=== PATIENT | male | born 2000 | race Hispanic/Latino ===

== ENCOUNTER 2022-06-13 16:59 | Emergency (ER) | payer OTHER ==
[~2022-06-13] VITALS: Ht 185.4 cm; Wt 99.8 kg
[2022-06-13] MEDS ORDERED: IBUPROFEN 600 MG TAB PO STA (18:03)
[2022-06-13] MEDS ORDERED: ACETAMINOPHEN 325 MG TAB ONE (18:14)
[2022-06-13] MEDS ORDERED: IBUPROFEN 600 MG TAB ONE (18:14)
[2022-06-13] MEDS ORDERED: ACETAMINOPHEN 325 MG TAB PO ONE (18:15)
[2022-06-13] MEDS ORDERED: TAMIFLU75 MG PO (18:24)
== END 2022-06-13 18:48 | disposition home or self-care (01) ==
LOC: FSED 17:17
DX: R05.9 Cough, unspecified (principal); J10.1 Influenza due to other identified influenza virus with other respiratory manifestations
CPT/HCPCS: 83518; 87400; 99283

== ENCOUNTER 2022-09-19 12:33 | Emergency (ER) | payer OTHER ==
[~2022-09-19] VITALS: Ht 185.4 cm; Wt 104.3 kg
[~2022-09-19 12:33] MED LIST: TAMIFLU75 MG PO
[2022-09-19] MEDS ORDERED: AUGMENTIN 500-1 EACH PO (13:09)
[2022-09-19] MEDS ORDERED: IBUPROFEN600 MG PO (13:09)
[2022-09-19] MEDS ORDERED: PREDNISONE50 MG PO (13:09)
== END 2022-09-19 13:18 | disposition home or self-care (01) ==
LOC: FSED 13:09
DX: J02.9 Acute pharyngitis, unspecified (principal)
CPT/HCPCS: 83518; 87400; 99282